=== PATIENT | female | born 1990 | race Caucasian/White ===

== ENCOUNTER 2023-06-16 07:11 | Outpatient (CLI) | payer OTHER, SELFPAY ==
[2023-06-16 19:09] LABS: Hematocrit 43.9 % (37.0-47.0); Hemoglobin 13.8 g/dL (12.0-15.0); Mean Corpuscular HGB Conc 31.4 g/dl (32-36); Mean Corpuscular Hemoglobin 29.2 pg (26-34); Mean Corpuscular Volume 92.8 fl (80-100); Mean Platelet Volume 10.7 fl (7.4-10.4); Platelet Count Result 252 k/mm3 (150-375); Red Blood Count 4.73 M/mm3 (4.2-5.4); White Blood Count 5.1 K/mm3 (4.5-10.0)
[2023-06-16 19:40] LABS: Vitamin D 25 Hydroxy 40.3 ng/mL
[2023-06-16 19:44] LABS: Alanine Aminotransferase 16 U/L (6-35); Alkaline Phosphatase 53 U/L (38-126); Anion Gap 2 mmol/L (8-16); Aspartate Amino Transferase 40 U/L (14-36); Blood Urea Nitrogen 8 mg/dL (7-17); Carbon Dioxide 29 mmol/L (22-30); Chloride 105 mmol/L (98-107); Cholesterol 155 mg/dL (0-200); Estimated Glomerular Filt Rate > 60; Glucose 75 mg/dL (65-110); HDL Direct 59 mg/dL; Potassium 3.9 mmol/L (3.4-5.0); Sodium 136 mmol/L (137-145); Triglycerides 101 mg/dL (<150)
[2023-06-16 19:55] LABS: LDL Cholesterol Direct 82 mg/dL
[2023-06-18 13:58] LABS: Folic Acid 11.3 ng/mL (2.76->20)
[2023-06-18 14:05] LABS: Hemoglobin A1C 4.7 % (<5.7)
== END 2023-06-16 07:12 | disposition home or self-care (01) ==
PROVIDERS: PCP Nurse Practitioner Adult Health; Visit Provider Nurse Practitioner Adult Health
DX: Z13.9 Encounter for screening, unspecified (principal); R53.83 Other fatigue; E16.2 Hypoglycemia, unspecified
CPT/HCPCS: 36415; 80053; 80061; 82306; 82607; 82746; 83036; 84443; 85027